=== PATIENT | male | born 1955 | race Caucasian/White ===

== ENCOUNTER 2017-02-11 15:46 | Emergency (ER) | payer MEDICAID, OTHER ==
[~2017-02-11] VITALS: Ht 182.9 cm; Wt 81.6 kg
[2017-02-11] MEDS ORDERED: SODIUM CHLORIDE 0.9% 1,000 ML IVB ONE (16:13)
[2017-02-11] MEDS ORDERED: KETOROLAC TROMETH 30 MG/ML 1ML VIAL IV ONE (16:15)
[2017-02-11 16:40] LABS: Basophils # (auto) 0 uL; CONDITION Y; Eosinophils # (auto) 0 uL; Eosinophils % (auto) 0.1 % (0.0-7.0); Hematocrit 45.3 % (41.0-53.0); Hemoglobin 15.7 g/dL (13.5-17.5); Lymphocytes # (auto) 1.1 uL; Lymphocytes % (auto) 6.9 % (10.0-50.0); Mean Corpuscular Hemoglobin 31.6 pg (28.0-32.0); Mean Corpuscular Hgb Conc. 34.7 g/dL (32.0-36.0); Mean Corpuscular Volume 90.9 fL (80.0-100.0); Mean Platelet Volume 8.4 fL (6.9-10.8); Monocytes # (auto) 0.5 uL; Monocytes % (auto) 3.1 % (0.0-12.0); Neutrophils # (auto) 13.8 uL; Neutrophils % (auto) 89.9 % (37.0-80.0); Platelet Count (auto) 270 10^3/uL (140-450); Red Cell Distribution Width 12.5 % (11.8-14.3); White Blood Cell 15.3 10^3/uL (4.4-10.8)
[2017-02-11 16:47] LABS: Albumin 4.5 g/dL (3.4-5.0); BUN/Creatinine Ratio 12.5; Calcium 8.6 mg/dL (8.5-10.1)
[2017-02-11 16:50] LABS: Total Protein 7.3 g/dL (6.4-8.2)
[2017-02-11 19:02] VITALS: BP 125/74
== END 2017-02-11 19:44 | disposition home or self-care (01) ==
LOC: ER 15:51
DX: R10.9 Unspecified abdominal pain (principal); F12.10 Cannabis abuse, uncomplicated; Z90.89 Acquired absence of other organs; Z88.0 Allergy status to penicillin
CPT/HCPCS: 36415; 74176; 80053; 83690; 85025; 93005; 94761; 96361; 96374; 99285; J1885; J7030

== ENCOUNTER 2017-03-06 07:56 | Emergency (ER) | payer MEDICAID ==
[~2017-03-06] VITALS: Ht 182.9 cm; Wt 81.6 kg
[2017-03-06 08:35] LABS: Basophils # (auto) 0.1 uL; Basophils % (auto) 0.8 % (0.0-2.0); Eosinophils # (auto) 0.1 uL; Eosinophils % (auto) 1.2 % (0.0-7.0); Hematocrit 41.9 % (41.0-53.0); Hemoglobin 14.8 g/dL (13.5-17.5); Lymphocytes # (auto) 1.8 uL; Lymphocytes % (auto) 16.9 % (10.0-50.0); Mean Corpuscular Hemoglobin 31.7 pg (28.0-32.0); Mean Corpuscular Hgb Conc. 35.2 g/dL (32.0-36.0); Mean Corpuscular Volume 90.1 fL (80.0-100.0); Monocytes # (auto) 0.9 uL; Neutrophils # (auto) 7.8 uL; Neutrophils % (auto) 73.1 % (37.0-80.0); Platelet Count (auto) 203 10^3/uL (140-450); Red Cell Distribution Width 12.7 % (11.8-14.3); White Blood Cell 10.7 10^3/uL (4.4-10.8)
[2017-03-06 09:03] LABS: Albumin 4.4 g/dL (3.4-5.0); Alkaline Phosphatase 96 U/L (45-117); Anion Gap 8 (5-15); Aspartate Aminotransferase 14 U/L (15-37); BUN/Creatinine Ratio 12.2; Bilirubin, Total 0.8 mg/dL (0.2-1.0); Blood Urea Nitrogen 19 mg/dL (7-18); Calcium 8.6 mg/dL (8.5-10.1); Carbon Dioxide 23 mmol/L (21-32); Chloride 107 mmol/L (98-107); GFR African American 58 mL/min; GFR Non-African American 48 mL/min; Glucose 143 mg/dL (74-106); Magnesium 2.3 mg/dL (1.6-2.6); Potassium 3.6 mmol/L (3.5-5.1); Sodium 138 mmol/L (136-145); Total Protein 7.6 g/dL (6.4-8.2)
[2017-03-06 11:55] VITALS: BP 152/83
[2017-03-06] MEDS ORDERED: SODIUM CHLORIDE 0.9% 1,000 ML IVB ONE (12:24)
[2017-03-06] MEDS ORDERED: KETOROLAC TROMETH 30 MG/ML 1ML VIAL IV ONE (12:30)
[2017-03-06] MEDS ORDERED: PROMETHAZINE HCL 25 MG/ML 1ML IV PRN (12:30)
== END 2017-03-06 13:42 | disposition home or self-care (01) ==
LOC: ER 07:56
DX: N13.2 Hydronephrosis with renal and ureteral calculous obstruction (principal); E11.21 Type 2 diabetes mellitus with diabetic nephropathy; Z87.442 Personal history of urinary calculi; Z88.0 Allergy status to penicillin
CPT/HCPCS: 36415; 74176; 80053; 81002; 83735; 84484; 85025; 93005; 94761; 96361; 96374; 96375; 99285; J1885; J2550

== ENCOUNTER 2025-04-13 10:22 | Emergency (ER) | payer MEDICAID, OTHER ==
[~2025-04-13] VITALS: Ht 182.9 cm; Wt 75.0 kg
--- NOTE | 2025-04-13 12:15 | DVH ---
CLINICAL HISTORY: sob TECHNIQUE: Single view of the chest was obtained. COMPARISON: CR CHEST 2 VIEW on DOS: 09/28/23 FINDINGS: The heart size and pulmonary vasculature are normal. The lungs are clear. IMPRESSION: NO ACUTE CARDIOPULMONARY PROCESS.
--- NOTE | 2025-04-13 13:25 | ED.PDOC ---
History of Present Illness HPI Comments 70-year-old male presents to the ER with prior medical history of tonsillectomy and a chief complaint of shortness of breath. Patient reports having shortness of breath that comes and goes for the past two days associated with tightness in the substernal region with a chest. Patient states on sitting down earlier this morning when he had a sudden onset of shortness of breath associated with lightheadedness when ambulating. Patient notes on going to make an appointment for a stress test on Tuesday with his PCP. Associated history of marijuana use(currently stopped). Family history of heart disease. Denies any other symptoms at this time. Denies chills, fever, N/V/D. No other associated symptoms, modifiers, recent injuries or sick contacts present at this time. Chief Complaint: Shortness of Breath Time Seen by MD: 12:50 Primary Care Provider: NATALIA Espino Notes: Nurses Notes, Medications, Allergies Allergies: Coded Allergies: Penicillins (Verified Allergy, Unknown, 02/11/17) Information Source: Patient Mode of Arrival: Ambulatory Severity: Moderate Timing: Hours Duration: Since onset, Hours Prehospital treatment: None Past Medical History PAST MEDICAL HISTORY: Denies Surgical History: Tonsillectomy Family History Family History: Reviewed,noncontributory to illness, Family hx of heart manuelito Social History Smoker: Non-Smoker Alcohol: Denies ETOH Use Drugs: Marijuana (Denies current use) Lives In: Home Constitutional: denies: chills, diaphoresis, fatigue, fever, malaise, sweats, weakness, others EENTM: denies: blurred vision, double vision, ear bleeding, ear discharge, ear drainage, ear pain, ear ringing, eye pain, eye redness, hearing loss, mouth pain, mouth swelling, nasal discharge, nose bleeding, nose congestion, nose pain, photophobia, tearing, throat pain, throat swelling, voice changes, others Respiratory: reports: shortness of breath; denies: cough, hemoptysis, orthopnea, SOB at rest, SOB with excertion, stridor, wheezing, others Cardiovascular: reports: chest pain; denies: dizzy spells, diaphoresis, Dyspnea on exertion, edema, irregular heart beat, left arm pain, lightheadedness, palpitations, PND, syncope, others Gastrointestinal: denies: abdomen distended, abdominal pain, blood streaked bowels, constipated, diarrhea, dysphagia, difficulty swallowing, hematemesis, melena, nausea, poor appetite, poor fluid intake, rectal bleeding, rectal pain, vomiting, others Genitourinary: denies: burning, dysuria, flank pain, frequency, hematuria, incontinence, penile discharge, penile sore, pain, testicle pain, testicle swelling, urgency, others Neurological: reports: others (Lightheadedness); denies: dizziness, fainting, headache, left sided numbness, left sided weakness, numbness, paresthesia, pre- existing deficit, right sided numbness, right sided weakness, seizure, speech problems, tingling, tremors, weakness Musculoskeletal: denies: back pain, gout, joint pain, joint swelling, muscle pain, muscle stiffness, neck pain, others Integumetry: denies: bruises, change in color, change in hair/nails, dryness, laceration, lesions, lumps, rash, wounds, others Allergic/Immunocompromised: denies: Difficulty Healing, Frequent Infections, Hives, Itching, others Hematologic/Lymphatic: denies: anemia, blood clots, easy bleeding, easy bruising, swollen glands, others Endocrine: denies: excessive hunger, excessive sweating, excessive thirst, excessive urination, flushing, intolerance to cold, intolerance to heat, unexplained weight gain, unexplained weight loss, others Psychiatric: denies: anxiety, bipolar disorder, depression, hopeless, panic disorder, schizophrenia, sleepless, suicidal, others All Other Systems: Reviewed and Negative Physical Exam Exam Comments Shortness of breath, tachypneic General Appearance: No Apparent Distress, Normal HEENT: Normal ENT Inspection, Pharynx Normal, TMs Normal Neck: Full Range of Motion, Non-Tender, Normal, Normal Inspection Respiratory: Chest Non-Tender, Lungs Clear, No Accessory Muscle Use, No Respiratory Distress, Normal Breath Sounds Cardiovascular: No Edema, No JVD, No Murmur, No Gallop, Normal Peripheral Pulses, Regular Rate/Rhythm Breast Exam: Deferred Gastrointestinal: No Organomegaly, Non Tender, No Pulsatile Mass, Normal Bowel Sounds, Soft Genitalia: Deferred Pelvic: Deferred Rectal: Deferred Extremities: No calf tenderness, Normal capillary refill, Normal inspection, Normal range of motion, Non-tender, No pedal edema Musculoskeletal : Apperance: Normal Neurologic: Alert, vessel captain II-XII nml as Tested, No Motor Deficits, Normal Affect, Normal Mood, No Sensory Deficits Cerebellar Function: Normal Reflexes: Normal Skin: Dry, Normal Color, Warm Lymphatic: No Adenopathy Was a procedure done? Was a procedure done?: No EKG EKG : Pulse Rate (adult): 65 [place]: Normal Cardiac Rhythm: NSR Block: None Hypertrophy: None ST: Normal Differential Dx Considerations may include: See MDM X-Ray, Labs, Meds, VS Vital Signs Date Time Temp Pulse Resp B/P (MAP) Pulse Ox O2 Delivery O2 Flow Rate FiO2 04/13/25 13:28 65 04/13/25 10:34 65 04/13/25 10:24 98.0 60 18 162/108 98 98.0 Lab Test 04/13/25 14:12 04/13/25 12:52 Range/Units Troponin I High Sensitivity Pending < 3 L </=54 ng/L White Blood Count 7.0 4.4-10.8 10^3/uL Red Blood Count 5.04 4.5-5.90 10^6/uL Hemoglobin 15.8 13.5-17.5 g/dL Hematocrit 45.6 41.0-53.0 % Mean Corpuscular Volume 90.5 80.0-100.0 fL Mean Corpuscular Hemoglobin 31.4 28.0-32.0 pg Mean Corpuscular Hemoglobin Concent 34.7 32.0-36.0 g/dL Red Cell Distribution Width 12.6 11.8-14.3 % Platelet Count 179 140-450 10^3/uL Mean Platelet Volume 8.0 6.9-10.8 fL Neutrophils (%) (Auto) 59.6 37.0-80.0 % Lymphocytes (%) (Auto) 28.5 10.0-50.0 % Monocytes (%) (Auto) 9.6 0.0-12.0 % Eosinophils (%) (Auto) 1.6 0.0-7.0 % Basophils (%) (Auto) 0.7 0.0-2.0 % Neutrophils # (Auto) 4.2 1.6-8.6 10 ^3/uL Lymphocytes # (Auto) 2.0 0.4-5.4 10 ^3/uL Monocytes # (Auto) 0.7 0-1.3 10 ^3/uL Eosinophils # (Auto) 0.1 0-0.8 10 ^3/uL Basophils # (Auto) 0 0-0.2 10 ^3/uL Nucleated Red Blood Cells 0.1 % Sodium Level 142 136-145 mmol/L Potassium Level 4.3 3.5-5.1 mmol/L Chloride Level 105 98-107 mmol/L Carbon Dioxide Level 26 20-31 mmol/L Anion Gap 11 5-15 Blood Urea Nitrogen 17 9-23 mg/dL Creatinine 0.92 0.700-1.30 mg/dL Glomerular Filtration Rate Calc 90 >90 mL/min BUN/Creatinine Ratio 18.5 10.0-20.0 Serum Glucose 110 H 74-106 mg/dL Calcium Level 9.6 8.7-10.4 mg/dL B-Type Natriuretic Peptide 12.79 0-100 pg/mL Time of 1ST Reevaluation: 13:20 Reevaluation 1ST: Unchanged Patient Education/Counseling: Diagnosis, Treatment, Prognosis Family Education/Counseling: No Family Present SEPSIS Sepsis Screen Date sepsis recognized/suspect: Apr 13, 2025 Time Sepsis recognized/suspect: 1026 Recent Procedure: No On Antibiotic Therapy: No Respiratory Rate >20: No Heart Rate >90: No Temp<36 C (96.8 F) or >38.3 C: No SBP <90 or MAP <65 mmHG: No New Acute Mental Status Change: No Is the patient on CPAP, BIPAP,: No Physician Orders Electrocardigram (04/13/25 10:28) Chest Portable (04/13/25 11:47) Electrocardigram (04/13/25 11:47) Troponin-I Hs (04/13/25 12:47) Troponin-I Hs (04/13/25 14:47) Electrocardigram (04/13/25 12:47) Electrocardigram (04/13/25 14:47) Vital Signs Date Time Temp Pulse Resp B/P (MAP) Pulse Ox O2 Delivery O2 Flow Rate FiO2 04/13/25 13:28 65 04/13/25 10:34 65 04/13/25 10:24 98.0 60 18 162/108 98 98.0 Laboratory Tests Test 04/13/25 12:52 White Blood Count 7.0 10^3/uL (4.4-10.8) Departure 1 Departure Time of Disposition: 14:31 (? High Complexity ProblemsAcute illness posing threat to life or bodily function (suspected ACS)? High Complexity DataMultiple unique labsIndependent interpretation of X-ray and EKGDiscussion/coordination of care with admitting team? High Risk of Morbidity/MortalityDecision regarding hospitalizationCritical care performedPotential for sudden deteriorationMEDICAL DECISION MAKING (HIGH COMPLEXITY LEVEL 5):The patient presents with acute chest pain highly concerning for acute coronary syndrome (ACS), an acute illness with potential for significant morbidity and mortality. Despite a normal initial diagnostic workup, ACSincluding unstable anginacannot be excluded and remains the leading concern.Data Reviewed / Independent Interpretation:I independently reviewed and interpreted all labs and imaging. CBC and BMP were within normal limits. High-sensitivity troponin was normal, but a single normal value does not exclude ACS. Chest X-ray was independently reviewed by me and demonstrated no acute cardiopulmonary abnormalities. I independently reviewed the EKG, which showed normal sinus rhythm without ischemic changes.Despite these benign findings, the patient continues to describe exertional and pressure-like chest pain radiating in a pattern consistent with possible ACS. Unstable angina may present with normal biomarkers and nondiagnostic EKGs, and therefore this diagnosis remains a high-risk, active consideration.Differential Diagnosis & Management:The differential included ACS/unstable angina, pulmonary embolism, aortic dissection, pneumothorax, arrhythmia, and esophageal or musculoskeletal etiologies. Given the symptom pattern and cardiac risk profile, ACS remains the most concerning and cannot be safely ruled out in the ED. Serial troponins, telemetry monitoring, and further cardiac evaluationincluding possible stress testing or cardiology consultationare medically necessary.Risk / Disposition:Due to the ongoing concern for evolving cardiac ischemia, the inability to exclude ACS at this stage, and the potential for rapid deterioration, I determined that inpatient admission is required for continued monitoring and further diagnostic evaluation. I discussed the case and plan of care with the admitting inpatient team. The patient understands and agrees with admission.CRITICAL CARE TIME: ___ MINUTESA total of ____ minutes of critical care time was provided, exclusive of separately billable procedures. Time was spent in high-intensity evaluation and management due to the risk of sudden clinical deterioration from suspected ACS. Activities included:Continuous cardiac monitoringSerial reassessment of vital signs and symptomsIndependent interpretation of EKG and imagingReview and integration of diagnostic dataCoordination of care and discussion with nursing and the admitting serviceDevelopment of treatment and monitoring planFrequent bedside reassessme ntsCritical care services were medically necessary due to the immediate potential for life-threatening cardiac ischemia.) Impression: Primary Impression: Acute chest pain Additional Impression: Shortness of breath Disposition: ADMITTED INPATIENT Admit to: Tele Condition: Guarded Critical Care Note Critical Care Time?: Yes Stability Stability form required: No Heart Score Heart Score: Heart Score Response (Comments) Value History Moderate Suspicious 1 EKG Repolarization Disturb 1 Age >65 2 Risk Factors 1 or 2 risk factors 1 Troponin Normal limit 0 Total 5 I personally scribed for SEBASTIÁN WORTHINGTON MD ([email or web address]) on 04/13/25 at 13:25. Electronically submitted by Kaz Patel [email or web address]). I personally scribed for SEBASTIÁN WORTHINGTON MD ([email or web address]) on 04/13/25 at 13:28. Electronically submitted by Kaz Patel ([email or web address]). SEBASTIÁN WORTHINGTON MD Apr 13, 2025 13:25
[2025-04-13 13:39] LABS: Hematocrit 45.6 % (41.0-53.0); Hemoglobin 15.8 g/dL (13.5-17.5); Mean Corpuscular Hemoglobin 31.4 pg (28.0-32.0); Mean Corpuscular Volume 90.5 fL (80.0-100.0); Nucleated Red Blood Cells % 0.1 %
[2025-04-13 13:45] LABS: Chloride 105 mmol/L (98-107); Potassium 4.3 mmol/L (3.5-5.1); Sodium 142 mmol/L (136-145)
[2025-04-13 13:46] LABS: Anion Gap 11 (5-15); Calcium 9.6 mg/dL (8.7-10.4); Carbon Dioxide 26 mmol/L (20-31)
[2025-04-13 13:51] LABS: BUN/Creatinine Ratio 18.5 (10.0-20.0); Blood Urea Nitrogen 17 mg/dL (9-23)
[2025-04-13 13:54] LABS: Glucose 110 mg/dL (74-106)
[2025-04-13 17:33] VITALS: TEMP 97.8
--- NOTE | 2025-04-13 21:45 | DVHINCON2 ---
OTILIO RUBY [facility] 04/13/255: Date of service: Apr 13, [address] Rogers Reason for Consultation Medical Management History of Present Illness Mr. Lane Fuchs is a 70-year-old male with a history of tonsillectomy who presents with a chief complaint of shortness of breath. Patient reports having shortness of breath that comes and goes for the past two days associated with an "epigastric gurgling" sensation as described by patient. Patient notes on going to make an appointment for a stress test on Tuesday with his PCP. Associated history of marijuana use(currently stopped). Family history of heart disease. Denies any other symptoms at this time. Denies chest pain, headaches , dizziness,chills, fever, N/V/D. No other associated symptoms, modifiers, recent injuries or sick contacts present at this time. Past Medical History denies any history Past Surgical History Tonsillectomy Family History Family History: Reviewed,noncontributory to illness, Family hx of heart manuelito Social History Smoker: Non-Smoker Alcohol: Denies ETOH Use Drugs: Marijuana (Denies current use) Lives In: Home Allergies: Coded Allergies: Penicillins (Verified Allergy, Unknown, 02/11/17) Review of Systems none, negative Vital Signs Vital Signs Date Time Temp Pulse Resp B/P (MAP) Pulse Ox O2 Delivery O2 Flow Rate FiO2 04/13/25 17:33 97.8 114 18 103/73 (83) 96 97.8 04/13/25 14:52 Room Air Physical Exam HEENT pupils are reactive Neck is supple CV is S1-S2 regular rate and rhythm Respiratory diminished breath sounds bases GI positive bowel sound Extremity no edema [employer]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 Labs/Diagnostic Data Labs Test 04/13/25 14:12 04/13/25 12:52 Range/Units Troponin I High Sensitivity < 3 L </=54 ng/L White Blood Count 7.0 4.4-10.8 10^3/uL Red Blood Count 5.04 4.5-5.90 10^6/uL Hemoglobin 15.8 13.5-17.5 g/dL Hematocrit 45.6 41.0-53.0 % Mean Corpuscular Volume 90.5 80.0-100.0 fL Mean Corpuscular Hemoglobin 31.4 28.0-32.0 pg Mean Corpuscular Hemoglobin Concent 34.7 32.0-36.0 g/dL Red Cell Distribution Width 12.6 11.8-14.3 % Platelet Count 179 140-450 10^3/uL Mean Platelet Volume 8.0 6.9-10.8 fL Neutrophils (%) (Auto) 59.6 37.0-80.0 % Lymphocytes (%) (Auto) 28.5 10.0-50.0 % Monocytes (%) (Auto) 9.6 0.0-12.0 % Eosinophils (%) (Auto) 1.6 0.0-7.0 % Basophils (%) (Auto) 0.7 0.0-2.0 % Neutrophils # (Auto) 4.2 1.6-8.6 10 ^3/uL Lymphocytes # (Auto) 2.0 0.4-5.4 10 ^3/uL Monocytes # (Auto) 0.7 0-1.3 10 ^3/uL Eosinophils # (Auto) 0.1 0-0.8 10 ^3/uL Basophils # (Auto) 0 0-0.2 10 ^3/uL Nucleated Red Blood Cells 0.1 % D-Dimer, Quantitative 0.19 0.0-0.49 mg/L FEU Sodium Level 142 136-145 mmol/L Potassium Level 4.3 3.5-5.1 mmol/L Chloride Level 105 98-107 mmol/L Carbon Dioxide Level 26 20-31 mmol/L Anion Gap 11 5-15 Blood Urea Nitrogen 17 9-23 mg/dL Creatinine 0.92 0.700-1.30 mg/dL Glomerular Filtration Rate Calc 90 >90 mL/min BUN/Creatinine Ratio 18.5 10.0-20.0 Serum Glucose 110 H 74-106 mg/dL Calcium Level 9.6 8.7-10.4 mg/dL B-Type Natriuretic Peptide 12.79 0-100 pg/mL Assessment This is a 70 yo male with no reported medical history who presents with epigastric "gurgling sensation" x 4 days. Patient denies chest pain, shortness of breath. Patient states " I wanted to get checked" reports he has an appointment with his PCP on Tuesday. Patient labs, and radiology reports reviewed , all unremarkable. D dimer 0.19 Troponin 3,3 Chest x ray : no acute cardiopulmonary disease. Problems(with codes): (1) Acid reflux Plan/Recommendation No criteria for admission at this time, given patient is feeling better denies any chest pain, dyspnea. 02 saturations 98% on room air. Patient will be discharged home , follow up with PCP on Tuesday as scheduled. Patient verbalized agreement to plan and recommendations. Plan discussed with: Patient, Other SEVERO ALDANA MD 04/14/25 1245: Allergies: Coded Allergies: Penicillins (Verified Allergy, Unknown, 02/11/17) Additional Comments Additional Comments Additional Comments Patient's chart is reviewed. Patient is seen evaluated and discharge from ER by nurse practitioner. I agree with her evaluation, documentation, assessment and care plan as outlined. OTILIO RUBY Apr 13, 2025 21:45 SEVERO ALDANA MD Apr 14, 2025 12:45
[2025-04-13 22:22] VITALS: BP 151/92; PULSE 64; RESP 14; O2SAT 99
--- NOTE | 2025-04-15 09:03 | ECG ---
[facility] Test Date: 2025-04-13 Test Time: 10:34:21 Pat Name: CECILLE WEBER Department: ED Room: Gender: M Transition Program Manager: GP : [id number] Requested By: SEBASTIÁN WORTHINGTON Order Number: [id number] Reading MD: Khalif Jesus Measurements Intervals Jamul Rate: 65 P: 73 AR: 170 QRS: 87 QRSD: 84 T: 71 QT: 384 QTc: 400 Interpretive Statements Sinus rhythm Borderline right axis deviation Electronically Signed On 04-16-2025 17:50:19 PST by Khalif Jesus Please click the below link to view image of tracing.
== END 2025-04-13 22:02 | disposition home or self-care (01) ==
LOC: ER 10:22
DX: R07.89 Other chest pain (principal); R06.02 Shortness of breath; F12.90 Cannabis use, unspecified, uncomplicated; Z90.89 Acquired absence of other organs; Z88.0 Allergy status to penicillin
CPT/HCPCS: 36415; 71045; 80048; 83880; 84484; 85025; 85379; 93005